=== PATIENT | male | born 1960 | race Caucasian/White ===

== ENCOUNTER 2023-06-13 10:31 | Inpatient (IN) ==
[2023-06-13] MEDS: cefTRIAXone 1 gm/50 mL D5W 1 GM/50 ML BAG IV ONE (11:55)
[2023-06-13] MEDS ORDERED: Vancomycin 2,000 MG in NS 0.9% 250 ml 250 ML IVPB SCH (12:00)
[2023-06-13] MEDS: NS 0.9% 1000 ml BAG 1,000 ML IV ONE (12:33)
[2023-06-13 12:45] LABS: Hematocrit 42.3 % (38-53); Hemoglobin 13.5 g/dL (13.2-16.3); Mean Corpuscular Hemoglobin 22.4 pg (27-33); Mean Corpuscular Hgb Conc 31.8 g/dL (31-36); Mean Corpuscular Volume 70.4 fL (80-97); Mean Platelet Volume 8.6 fL (7.5-11.2); Platelet Count 372 10^3/uL (150-450); Red Blood Count 6.01 10^6/uL (4.06-5.63); Red Cell Distribution Width 21.5 % (12-17); White Blood Count 37.8 10^3/uL (3.6-10.2)
[2023-06-13 12:49] LABS: Activated Partial Thrombo Time 36.2 seconds (26.0-38.0); INR 1.46 (0.83-1.13)
[2023-06-13 13:02] LABS: ALT 22 U/L (7-52); Albumin 3.5 g/dL (3.2-5.2); Albumin/Globulin Ratio 0.7 (1-3); Alkaline Phosphatase 146 U/L (35-149); Anion Gap 9 mmol/L (2-16); Blood Urea Nitrogen 23 mg/dL (6-24); C Reactive Protein 268.47 mg/L (<8.01); CO2 Carbon Dioxide 26 mmol/L (22-32); Calcium 9.4 mg/dL (8.6-10.3); Chloride 99 mmol/L (101-111); Creatinine, Serum 1.26 mg/dL (0.67-1.17); Globulin 5.1 g/dL (2-4); Glucose 123 mg/dL (70-100); Sodium 134 mmol/L (135-145); Total Bilirubin 0.8 mg/dL (0.2-1.0); Total Protein 8.6 g/dL (6.4-8.9); eGFR CKD-EPI 64.1 (>60)
[2023-06-13] MEDS: Cefepime 2 GM in Dextrose 2 GM/50 ML BAG IV ONE (13:10)
[2023-06-13 13:39] LABS: ABS Basophils 0.1 10^3/uL (0.0-0.1); ABS Lymphocytes 1.1 10^3/uL (1.0-4.8); ABS Monocytes 1.8 10^3/uL (0.0-1.1); ABS Neutrophils 34.7 10^3/uL (1.5-7.6); Anisocytosis 1+; Hypochromasia 2+; Microcytosis 2+
[2023-06-13] MEDS: metroNIDAZOLE IV 500 MG/100ML 500 MG/100 ML BAG IVPB ONE (13:55)
[2023-06-13] MEDS: Iohexol 300 (CONTRAST) 10 ML SDV IV ONE (14:46)
[2023-06-13] MEDS: Vancomycin 2,000 MG in NS 0.9% 500 ml BAG 500 ML IVPB ONE (15:09)
[2023-06-13] MEDS: HYDROmorphone 0.5 MG/0.5 ML SYRINGE IV ONE (15:09)
[2023-06-13 15:14] LABS: Potassium Redraw 3.7 mmol/L (3.5-5.0)
[2023-06-13] MEDS ORDERED: Senna TAB 8.6 mg TAB PO PRN (17:06)
[2023-06-13] MEDS ORDERED: Polyethylene Glycol 3350 17 GM PACKET PO PRN (17:06)
[2023-06-13] MEDS ORDERED: Ondansetron 4 mg VIAL 2 MG/ML 2 ml VIAL IV PRN (17:06)
[2023-06-13] MEDS ORDERED: Al Hydrox/Mg Hydrox/Simet LIQ 30 ML UDC PO PRN (17:06)
[2023-06-13 17:14] LABS: Urine Appearance Extra Turbid; Urine Bilirubin Negative (Negative); Urine Blood 2+ (Negative); Urine Glucose Negative (Negative); Urine Ketones Negative (Negative); Urine Nitrite 2+ (Negative); Urine Protein 1+ (>=30 mg/dL) (Negative); Urine Specific Gravity 1.024 (1.002-1.030); Urine Urobilinogen Negative (Negative); Urine pH 6.5 (5.0-8.0)
[2023-06-13 17:27] LABS: Urine Bacteria 3+ /HPF (Absent); Urine Red Blood Cell 3+(>10/hpf) /HPF (0-Trace); Urine White Blood Cell 3+(>20/hpf) /HPF (0-Trace)
[2023-06-13 17:28] LABS: Urine Color Light-Yellow
[2023-06-13] MEDS: Lactated Ringers 1000 ml BAG 1,000 ML IV ONE (17:54)
[2023-06-13] MEDS: Enoxaparin 40 MG/0.4 ML SYR SUBCUT SCH (17:54)
[2023-06-13] MEDS ORDERED: Vancomycin per Pharmacy 1 EA NOTE FOLLOW UP SCH (18:00)
[2023-06-13 20:47] LABS: % Iron Saturation 6 % (15-55); .Transferrin 221 mg/dL (203-362); Iron < 20 ug/dL (50-212); Total Iron Binding Capacity 309 mcg/dL (250-450); Unsaturated Iron Binding 289 ug/dL
[2023-06-13 21:08] LABS: Ferritin 75.7 ng/mL (24-336)
[2023-06-13] MEDS ORDERED: metroNIDAZOLE IV 500 MG/100ML 500 MG/100 ML BAG IVPB SCH (22:00)
[2023-06-13] MEDS: metroNIDAZOLE IV 500 MG/100ML 500 MG/100 ML BAG IVPB SCH (22:07)
[2023-06-13] MEDS ORDERED: Cefepime 2 GM in Dextrose 2 GM/50 ML BAG IV SCH (23:00)
[2023-06-13] MEDS: Cefepime 2 GM in Dextrose 2 GM/50 ML BAG IV SCH (23:17)
[2023-06-14] MEDS: Vancomycin 750 MG in NS 0.9% 250 ML IVPB SCH (01:12)
[2023-06-14 06:44] LABS: Calcium 8.5 mg/dL (8.6-10.3); Creatinine, Serum 1.25 mg/dL (0.67-1.17); Magnesium 1.8 mg/dL (1.9-2.7); Potassium 3.8 mmol/L (3.5-5.0); eGFR CKD-EPI 64.7 (>60)
[2023-06-14 06:55] LABS: Hemoglobin 11.8 g/dL (13.2-16.3); Mean Corpuscular Hemoglobin 21.7 pg (27-33); Mean Corpuscular Volume 70.1 fL (80-97); Mean Platelet Volume 8.6 fL (7.5-11.2); Platelet Count 278 10^3/uL (150-450); Red Blood Count 5.42 10^6/uL (4.06-5.63); White Blood Count 29.9 10^3/uL (3.6-10.2)
[2023-06-14 07:46] LABS: ABS Basophils 0.1 10^3/uL (0.0-0.1); ABS Eosinophils 0.1 10^3/uL (0.0-0.5); ABS Lymphocytes 1.9 10^3/uL (1.0-4.8); ABS Monocytes 1.8 10^3/uL (0.0-1.1); ABS Neutrophils 26.2 10^3/uL (1.5-7.6); Eosinophil % 0.2 %; Lymphocyte % 6.4 %
[2023-06-14] MEDS: Potassium Chlor 20 meq TAB.ER PO ONE (09:54)
[2023-06-14] MEDS: Magnesium Sulfate 2 gm BAG 2 GM/50 ML BAG IVPB ONE (09:54)
[2023-06-15 06:34] LABS: ABS Basophils 0.1 10^3/uL (0.0-0.1); ABS Eosinophils 0.4 10^3/uL (0.0-0.5); ABS Lymphocytes 2.1 10^3/uL (1.0-4.8); ABS Monocytes 1.4 10^3/uL (0.0-1.1); ABS Neutrophils 16.6 10^3/uL (1.5-7.6); ABS Nucleated RBC 0.01 10^3/ul; Hematocrit 36.5 % (38-53); Hemoglobin 11.5 g/dL (13.2-16.3); Lymphocyte % 10.1 %; Mean Corpuscular Hemoglobin 22.1 pg (27-33); Mean Corpuscular Hgb Conc 31.4 g/dL (31-36); Mean Corpuscular Volume 70.4 fL (80-97); Mean Platelet Volume 8.8 fL (7.5-11.2); Platelet Count 256 10^3/uL (150-450); Red Blood Count 5.19 10^6/uL (4.06-5.63); Red Cell Distribution Width 21.2 % (12-17); White Blood Count 20.6 10^3/uL (3.6-10.2)
[2023-06-15 06:52] LABS: Calcium 8.4 mg/dL (8.6-10.3); Creatinine, Serum 1.03 mg/dL (0.67-1.17); Potassium 3.7 mmol/L (3.5-5.0); eGFR CKD-EPI 81.6 (>60)
[2023-06-15] MEDS: Potassium Chlor 20 meq TAB.ER PO ONE (11:43)
[2023-06-15] MEDS: Vancomycin Trough Check NOTE FOLLOW UP ONE (23:20)
[2023-06-16 06:32] LABS: Calcium 8.5 mg/dL (8.6-10.3); Creatinine, Serum 0.96 mg/dL (0.67-1.17); Potassium 4.6 mmol/L (3.5-5.0); eGFR CKD-EPI 88.8 (>60)
[2023-06-16 06:42] LABS: ABS Basophils 0.1 10^3/uL (0.0-0.1); ABS Eosinophils 0.5 10^3/uL (0.0-0.5); ABS Lymphocytes 2.1 10^3/uL (1.0-4.8); ABS Monocytes 1.2 10^3/uL (0.0-1.1); ABS Neutrophils 11.3 10^3/uL (1.5-7.6); ABS Nucleated RBC 0.01 10^3/ul; Eosinophil % 3.4 %; Hematocrit 39.9 % (38-53); Hemoglobin 12.3 g/dL (13.2-16.3); Lymphocyte % 13.6 %; Mean Corpuscular Hemoglobin 22.1 pg (27-33); Mean Corpuscular Hgb Conc 30.8 g/dL (31-36); Mean Corpuscular Volume 71.8 fL (80-97); Mean Platelet Volume 8.7 fL (7.5-11.2); Platelet Count 272 10^3/uL (150-450); Red Blood Count 5.56 10^6/uL (4.06-5.63); Red Cell Distribution Width 21.6 % (12-17); White Blood Count 15.2 10^3/uL (3.6-10.2)
[2023-06-17 06:29] LABS: Hematocrit 37.8 % (38-53); Mean Corpuscular Hemoglobin 22.2 pg (27-33); Mean Corpuscular Hgb Conc 31.8 g/dL (31-36); Mean Corpuscular Volume 69.9 fL (80-97); Mean Platelet Volume 8.8 fL (7.5-11.2); Platelet Count 308 10^3/uL (150-450); Red Cell Distribution Width 21.3 % (12-17); White Blood Count 17.2 10^3/uL (3.6-10.2)
[2023-06-17 06:50] LABS: Calcium 8.5 mg/dL (8.6-10.3); Creatinine, Serum 0.89 mg/dL (0.67-1.17); Magnesium 1.9 mg/dL (1.9-2.7); Potassium 3.9 mmol/L (3.5-5.0); eGFR CKD-EPI 96.3 (>60)
[2023-06-17 07:30] LABS: ABS Basophils 0.1 10^3/uL (0.0-0.1); ABS Eosinophils 0.6 10^3/uL (0.0-0.5); ABS Lymphocytes 2.2 10^3/uL (1.0-4.8); ABS Monocytes 1.2 10^3/uL (0.0-1.1); ABS Nucleated RBC 0.01 10^3/ul; Eosinophil % 3.6 %; Nucleated Red Blood Cells % 0.1 %/100WBC (0.0-0.8)
[2023-06-17] MEDS: Magnesium Sulfate IV 1GM/100ML 1 GM/100 ML BAG IV ONE (09:10)
[2023-06-17] MEDS: Potassium Chlor 20 meq TAB.ER PO ONE (09:10)
[2023-06-17] MEDS ORDERED: Iron Sucrose 200 MG in NS 0.9% 100 ml BAG 100 ML IVPB ONE (16:00)
[2023-06-18 08:03] LABS: Rapid COVID-19 Molecular Undetected (Undetected)
[2023-06-20 10:08] VITALS: BP 135/70
== END 2023-06-20 10:17 | DRG 872 ==
LOC: ED 10:31 → EDHOLD 17:06 → SUATTDRO 17:06 → MEDTELE 17:53
PROVIDERS: ADMIT Hospitalist; ATTEND Internal Medicine